=== PATIENT | male | born 1945 | race Caucasian/White ===

== ENCOUNTER 2018-08-16 05:25 | Emergency (ER) | payer MEDICARE, BC ==
--- NOTE | 2018-08-16 05:52 | EDM.PDOC ---
ED HPI GENERAL MEDICAL PROBLEM - General Chief Complaint: Chest Pain Stated Complaint: chest pain Time Seen by Provider: 08/16/18 05:28 Source of Information: Reports: Patient, RN, RN Notes Reviewed History Limitations: Reports: No Limitations - History of Present Illness INITIAL COMMENTS - FREE TEXT/NARRATIVE: Patient present to the ED at [facility] for the evaluation of chest/ epigastric pain. Patient states the pain started about two days ago. The pain intensity has remained the same. No cardiac history. He denies any SOB. No diaphoresis. Denies any dizziness. Patient states the pain radiates into the left shoulder. No jaw pain. Patient does not think his pain is acid reflex. He has a mild global headache that has been present "for a while." Over the past few weeks, he has noticed some intermittent blurry vision. Patient states overall, he has been very healthy. Does not see a provider on a regular basis. Onset Date: 08/14/18 Location: Reports: Chest Quality: Reports: Pressure Severity: Mild Improves with: Reports: None Worsens with: Reports: None Context: Denies: Activity, Sick Contact, Trauma Associated Symptoms: Reports: No Other Symptoms Treatments FINANCE PROFESSIONAL: Reports: Other (see below) (None) mid sternal chest Pain Score (Numeric/FACES): 3 - Related Data Allergies Allergy/AdvReac Type Severity Reaction Status Date / Time No Known Allergies Allergy Verified 08/16/18 05:43 Home Meds: Home Meds Lisinopril/Hydrochlorothiazide [Lisinopril-Hctz 10-12.5 mg Tab] 1 tab PO DAILY # 30 tablet 08/16/18 [Rx] ED ROS GENERAL - Review of Systems Review Of Systems: See Below Constitutional: Denies: Fever, Chills HEENT: Reports: Vision Change Respiratory: Denies: Shortness of Breath, Cough Cardiovascular: Reports: Chest Pain, Blood Pressure Problem. Denies: Lightheadedness, Palpitations GI/Abdominal: Reports: Abdominal Pain (epigastric). Denies: Nausea, Vomiting Skin: Reports: No Symptoms Neurological: Reports: Headache. Denies: Confusion, Dizziness, Numbness, Paresthesia, Tingling ED EXAM, GENERAL - Physical Exam Exam: See Below Exam Limited By: No Limitations General Appearance: Alert, No Apparent Distress Eye Exam: Bilateral Eye: Normal Inspection, PERRL Respiratory/Chest: No Respiratory Distress, Lungs Clear, Normal Breath Sounds Cardiovascular: Normal Peripheral Pulses, Regular Rate, Rhythm Peripheral Pulses: 2+: Radial (L), Radial (R) GI/Abdominal: Soft, Non-Tender, Abnormal Bowel Sounds (Hypoactive) Neurological: Alert, Oriented Skin Exam: Warm, Dry, Intact, Normal Color EKG INTERPRETATION EKG Date: 08/16/18 Time: 05:26 Rhythm: NSR Rate (Beats/Min): 75 [place]: Normal P-Wave: Present QRS: Normal ST-T: Normal QT: Normal GA/PQ Interval: 0.15 Comparison: NA - No Prior EKG EKG Interpretation Comments: 1. Sinus Rhythm 2. Pattern consistent with pulmonary disease 3. Left anterior fascicular block Course - Vital Signs Last Recorded V/S: Last Vital Signs Temp 36.5 C 08/16/18 05:27 Pulse 73 08/16/18 05:27 Resp 12 08/16/18 05:27 BP 170/96 H 08/16/18 06:21 Pulse Ox 95 08/16/18 05:27 - Orders/Labs/Meds Orders: Active Orders 24 hr Category Date Time Status EKG 12 Lead [EKG Documentation Completion] [RC] STAT Care 08/16/18 05:48 Active Chest 2V [CR] Stat Exams 08/16/18 05:50 Taken Sodium Chloride 0.9% [Saline Flush] Med 08/16/18 06:11 Active 10 ml FLUSH ASDIRECTED PRN Peripheral IV Insertion Adult [OM.PC] Routine Oth 08/16/18 06:11 Ordered Medication Orders Sodium Chloride (Saline Flush) 10 ml FLUSH ASDIRECTED PRN PRN Reason: Keep Vein Open Labs: Laboratory Tests 08/16/18 08/16/18 08/16/18 Range/Units 05:57 05:57 06:02 WBC 5.0 (4.0-10.0) x10^3/uL RBC 5.04 (4.5-6.0) x10^6/uL Hgb 15.7 (14.0-18.0) g/dL Hct 46.8 (40.0-52.0) % MCV 92.9 (78.0-93.0) fL MCH 31.2 (26.0-32.0) pg MCHC 33.5 (32.0-36.0) g/dL RDW Coeff of Mickey 12.7 (10.0-15.0) % Plt Count 184 (130-400) x10^3/uL Neut % (Auto) 64.6 (50.0-80.0) % Lymph % (Auto) 24.2 L (25.0-50.0) % [place] % (Auto) 6.8 (2.0-11.0) % Eos % (Auto) 4.2 H (0.0-4.0) % Baso % (Auto) 0.2 (0.2-1.2) % Sodium 143 (136-145) mmol/L Potassium 3.9 (3.5-5.1) mmol/L Chloride 105 (98-107) mmol/L Carbon Dioxide 28 (21-32) mmol/L Anion Gap 13.9 (10-20) mmol/L BUN 14 (7-18) mg/dL Creatinine 1.2 (0.70-1.30) mg/dL Est Cr Clr Drug Dosing 52.79 mL/min Estimated GFR (MDRD) 60 Glucose 107 H (74-106) mg/dL Calcium 8.9 (8.5-10.1) mg/dL Corrected Calcium 9.14 (8.5-10.1) mg/dL Total Bilirubin 0.9 (0.2-1.0) mg/dL AST 11 L (15-37) U/L ALT 25 (16-63) U/L Alkaline Phosphatase 97 (46-116) U/L Creatine Kinase 68 (39-308) U/L POC Troponin I 0.00 (0.00-0.08) ng/mL Total Protein 7.2 (6.4-8.2) g/dL Albumin 3.7 (3.4-5.0) g/dL Globulin 3.5 Albumin/Globulin Ratio 1.06 Amylase 53 (25-115) U/L Lipase 164 (73-393) U/L Meds: Medications Generic Name Dose Route Start Last Admin Trade Name Freq PRN Reason Stop Dose Admin Sodium Chloride 10 ml 08/16/18 06:11 Saline Flush FLUSH ASDIRECTED PRN Keep Vein Open Discontinued Medications Generic Name Dose Route Start Last Admin Trade Name Freq PRN Reason Stop Dose Admin Al Hydroxide/Mg Hydroxide 30 ml 08/16/18 05:49 08/16/18 06:01 Gi Cocktail PO 08/16/18 05:50 30 ml ONETIME ONE Administration Aspirin 324 mg 08/16/18 05:55 08/16/18 05:55 Aspirin PO 08/16/18 05:56 324 mg ONETIME ONE Administration Enalaprilat 1.25 mg 08/16/18 06:11 08/16/18 06:21 Vasotec Iv IVPUSH 08/16/18 06:12 1.25 mg ONETIME ONE Administration Famotidine 20 mg 08/16/18 06:11 08/16/18 06:34 Pepcid IVPUSH 08/16/18 06:12 20 mg ONETIME ONE Administration Ketorolac Tromethamine 30 mg 08/16/18 06:15 08/16/18 06:51 Toradol IVPUSH 08/16/18 06:16 30 mg ONETIME ONE Administration Pantoprazole Sodium 40 mg 08/16/18 06:11 08/16/18 06:31 Protonix Iv IVPUSH 08/16/18 06:12 40 mg ONETIME ONE Administration - Radiology Interpretation Free Text/Narrative:: CXR: Normal examination of the chest See scanned report in EMR for details - Re-Assessments/Exams Free Text/Narrative Re-Assessment/Exam: 08/16/18 06:37 Patient states his headache has resolved after the Vasotec. He states he is feeling better. Chest discomfort is "feeling better." Resting comfortably. Departure - Departure Time of Disposition: 07:07 Disposition: Home, Self-Care 01 Reason for Transfer *Q: Other Condition: Good Clinical Impression: Epigastric pain Hypertension Qualifiers: Hypertension type: essential hypertension Qualified Code(s): I10 - Essential ( primary) hypertension Prescriptions: Lisinopril/Hydrochlorothiazide [Lisinopril-Hctz 10-12.5 mg Tab] 1 tab PO DAILY # 30 tablet Instructions: Hypertension Referrals: Rylan Pete NP [Emergency Provider] - Forms: ED Department Discharge Additional Instructions: 1. Stay well hydrated and rest 2. Take blood pressure medication daily, even if you are feeling better 3. Avoid salt in foods 4. Followup with me in clinic in one week for a recheck, sooner if problems - Problem List Review Problem List Initiated/Reviewed/Updated: Yes - My Orders Last 24 Hours: My Active Orders 08/16/18 05:48 EKG 12 Lead [EKG Documentation Completion] [RC] STAT 08/16/18 05:50 Chest 2V [CR] Stat 08/16/18 06:11 Sodium Chloride 0.9% [Saline Flush] 10 ml FLUSH ASDIRECTED PRN Peripheral IV Insertion Adult [OM.PC] Routine - Assessment/Plan Last 24 Hours: My Active Orders 08/16/18 05:48 EKG 12 Lead [EKG Documentation Completion] [RC] STAT 08/16/18 05:50 Chest 2V [CR] Stat 08/16/18 06:11 Sodium Chloride 0.9% [Saline Flush] 10 ml FLUSH ASDIRECTED PRN Peripheral IV Insertion Adult [OM.PC] Routine Assessment:: Epigastric Pain [facility] Hypertension, uncontrolled Plan: Labs and xray discussed with patient. No acute emergency found. Will restart patients blood pressure medication. Patient will follow up with me in clinic in one week.
[2018-08-16] MEDS: Aspirin 81 MG Tab.Chew PO ONE (05:55)
[2018-08-16] MEDS: GI Cocktail Oral Solution 30 ML PO ONE (06:01)
[2018-08-16] MEDS ORDERED: Sodium Chloride 0.9% 10 ML Syringe FLUSH PRN (06:11)
[2018-08-16] MEDS: Enalaprilat 1.25 MG/ML SDV IVPUSH ONE (06:21)
[2018-08-16 06:25] LABS: ANION GAP 13.9 mmol/L (10-20)
[2018-08-16] MEDS: Pantoprazole 40 MG Vial IVPUSH ONE (06:31)
[2018-08-16] MEDS: Famotidine 20 MG/2 ML SDV IVPUSH ONE (06:34)
[2018-08-16] MEDS: Ketorolac 30 MG/ML SDV IVPUSH ONE (06:51)
--- NOTE | 2018-08-16 08:29 | CR ---
[id number] RAD/RAD Chest PA And Lateral EXAM: RAD Chest PA And Lateral INDICATION: CHEST PAIN. COMPARISON: None. DISCUSSION: Cardiomediastinal silhouette is normal in size and contour. No infiltrate, effusion, pneumothorax, or edema. IMPRESSION: No acute cardiopulmonary abnormality. Leroy Mayo DO 08/16/18 0827 Thank you for allowing us to participate in the care of your patient.
== END 2018-08-16 07:31 | disposition home or self-care (01) ==
LOC: VM.ED 05:25
DX: R10.13 Epigastric pain (principal); I10 Essential (primary) hypertension; Z79.899 Other long term (current) drug therapy
CPT/HCPCS: 36415; 71046; 80053; 82150; 82550; 83690; 84484; 85025; 93005; 96374; 96375; 99285; A9270; C9113; J1885; J3490; 93010; 99284-GF

== ENCOUNTER 2018-09-03 01:43 | Emergency (ER) | payer MEDICARE, BC ==
--- NOTE | 2018-09-03 02:32 | EDM.PDOC ---
ED HPI GENERAL MEDICAL PROBLEM - General Chief Complaint: General Stated Complaint: arms burning Time Seen by Provider: 09/03/18 01:45 Source of Information: Reports: Patient, Family History Limitations: Reports: No Limitations - History of Present Illness INITIAL COMMENTS - FREE TEXT/NARRATIVE: Patient states over the last couple of days he has had increased shortness of breath and dyspnea on exertion and a mid epigastric pain described as a burning with pain radiating out into bilateral arms and down each arm he says the shortness of breath increases with laying down and has increased over the last 2 -3 days to the point he can no longer lay flat and tonight had to get up into the recliner asleep he usually sleeps with 1-2 pillows and on his side has digital exertion has been increasing over the last 1-2 weeks states he usually would take the dog on a couple mall walker now he can barely make it a half mile before getting short of breath but after he rests it returns to normal he denies any chest pain during the last couple weeks nor does he have any chest pain tonight he states it is more of an epigastric turning indigestion type pain at the bottom of his sternum which is taking Tums for gotten decent relief he denies pain states it's more of a pressure and a burning he denies any lower extremity edema fever chills nausea or vomiting since he has been seeing his primary care provider Quentin for blood pressure medicine changes he denies seeing a sales service manager in the past states that his father did have congestive heart failure and past in his late 70s from it Improves with: Reports: Rest, Other (Setting up) Worsens with: Reports: Other (Lying flat) Associated Symptoms: Reports: Shortness of Breath. Denies: Chest Pain, Cough, Fever/Chills, Nausea/Vomiting - Related Data Allergies Allergy/AdvReac Type Severity Reaction Status Date / Time corn Allergy Headache Verified 09/03/18 01:44 cottonseed oil Allergy Headache Verified 09/03/18 01:44 Home Meds: Home Meds Lisinopril/Hydrochlorothiazide [Lisinopril-Hctz 10-12.5 mg Tab] 1 tab PO DAILY # 30 tablet 08/16/18 [Rx] Past Medical History Cardiovascular History: Reports: Hypertension - Past Surgical History GI Surgical History: Reports: Hernia, Inguinal, Hernia Repair/Other Other GI Surgeries/Procedures: Umbilical hernia. Musculoskeletal Surgical History: Reports: Other (See Below) Other Musculoskeletal Surgeries/Procedures:: Foot surgery. Social & Family History - Tobacco Use Smoking Status *Q: Former Smoker Used Tobacco, but Quit: Yes Month/Year Tobacco Last Used: 1973 ED ROS GENERAL - Review of Systems Review Of Systems: See Below Constitutional: Reports: Fatigue. Denies: Fever, Chills, Weakness, Decreased Appetite HEENT: Reports: No Symptoms Respiratory: Reports: Shortness of Breath. Denies: Wheezing, Pleuritic Chest Pain, Cough Cardiovascular: Reports: Blood Pressure Problem, Dyspnea on Exertion, Other ( Blood pressure tonight was 145/94 at home). Denies: Chest Pain, Edema, PND, Syncope Endocrine: Reports: No Symptoms GI/Abdominal: Reports: No Symptoms. Denies: Abdominal Pain, Difficulty Swallowing, Flatus, Hematemesis, Hematochezia, Nausea : Reports: No Symptoms Musculoskeletal: Reports: No Symptoms Skin: Reports: No Symptoms Neurological: Reports: No Symptoms Psychiatric: Reports: No Symptoms Hematologic/Lymphatic: Reports: No Symptoms ED EXAM, GENERAL - Physical Exam Exam: See Below Exam Limited By: No Limitations General Appearance: Alert, WD/WN, No Apparent Distress Nose: Normal Inspection Throat/Mouth: Normal Inspection, Normal Lips, Normal Teeth, Normal Gums, Normal Oropharynx Neck: Normal Inspection, Supple, Non-Tender, Full Range of Motion. No: Carotid Bruit Respiratory/Chest: No Respiratory Distress, Lungs Clear, Normal Breath Sounds, No Accessory Muscle Use, Chest Non-Tender Cardiovascular: Normal Peripheral Pulses, Regular Rate, Rhythm, No Edema, No Gallop, No JVD GI/Abdominal: Normal Bowel Sounds, Soft, Non-Tender, No Organomegaly, No Distention Extremities: Normal Inspection, Normal Range of Motion, Non-Tender, No Pedal Edema. No: Pedal Edema Neurological: Alert, Oriented, CN II-XII Intact, Normal Cognition, Normal Gait Psychiatric: Normal Affect Skin Exam: Warm, Dry, Intact, Normal Color Course - Vital Signs Last Recorded V/S: Last Vital Signs Temp 36.2 C 09/03/18 01:44 Pulse 80 09/03/18 01:44 Resp 18 09/03/18 01:44 BP 145/94 H 09/03/18 01:44 Pulse Ox 96 09/03/18 01:44 - Orders/Labs/Meds Orders: Active Orders 24 hr Category Date Time Status EKG Documentation Completion [RC] STAT Care 09/03/18 02:12 Ordered BASIC METABOLIC PANEL,BMP [CHEM] Stat Lab 09/03/18 02:12 Ordered CBC WITH AUTO DIFF [HEME] Stat Lab 09/03/18 02:12 Ordered PRO B-TYPE NATRIUR PEPT,BNPPRO [CHEM] Stat Lab 09/03/18 02:11 Ordered TROPONIN I [CHEM] Stat Lab 09/03/18 02:12 Ordered - Re-Assessments/Exams Free Text/Narrative Re-Assessment/Exam: 09/03/18 02:35 CBC BMP BNP troponin EKG EKG normal sinus rhythm negative acute findings for ST elevation or depression 09/03/18 03:20 CBC BMP troponin all normal BNP 38 09/03/18 04:06 Chest x-ray no acute findings reviewed the last notes when the patient was in the ER on July patient presented with the same signs and symptoms all the workup was negative then Departure - Departure Time of Disposition: 04:00 Disposition: Home, Self-Care 01 Condition: Good Clinical Impression: Dyspnea on exertion - Discharge Information - Problem List & Annotations (1) Dyspnea on exertion SNOMED Code(s): 37130095 Code(s): R06.09 - OTHER FORMS OF DYSPNEA Status: Acute Current Visit: Yes (2) Hypertension SNOMED Code(s): 35912970 Code(s): I10 - ESSENTIAL (PRIMARY) HYPERTENSION Status: Acute Current Visit: No Qualifiers: Hypertension type: essential hypertension Qualified Code(s): I10 - Essential (primary) hypertension (3) Epigastric pain SNOMED Code(s): 60785298 Code(s): R10.13 - EPIGASTRIC PAIN Status: Acute Current Visit: No - My Orders Last 24 Hours: My Active Orders 09/03/18 02:11 PRO B-TYPE NATRIUR PEPT,BNPPRO [CHEM] Stat 09/03/18 02:12 EKG Documentation Completion [RC] STAT BASIC METABOLIC PANEL,BMP [CHEM] Stat CBC WITH AUTO DIFF [HEME] Stat TROPONIN I [CHEM] Stat - Assessment/Plan Last 24 Hours: My Active Orders 09/03/18 02:11 PRO B-TYPE NATRIUR PEPT,BNPPRO [CHEM] Stat 09/03/18 02:12 EKG Documentation Completion [RC] STAT BASIC METABOLIC PANEL,BMP [CHEM] Stat CBC WITH AUTO DIFF [HEME] Stat TROPONIN I [CHEM] Stat Plan: Patient's blood pressure was checked and was within normal limits I discussed lab work chest x-ray with patient's they're okay with diagnosis and treatment and follow up outpatient with quentin in the next 24-48 hours patient was also instructed that he may return to the emergency room if anything got worse her signs and symptoms increased patient and gave verbal understanding continue all meds as directed
[2018-09-03 03:15] LABS: CHLORIDE,CL 102 mmol/L (98-107); SODIUM,NA 142 mmol/L (136-145)
[2018-09-03 03:17] LABS: ANION GAP 16.5 mmol/L (10-20)
--- NOTE | 2018-09-03 09:19 | CR ---
[id number] RAD/RAD Chest PA or AP 1V EXAM: RAD Chest PA or AP 1V INDICATION: SHORTNESS OF BREATH. COMPARISON: August 16, 2018. DISCUSSION: Cardiomediastinal silhouette is stable in size and contour. No infiltrate, effusion, pneumothorax, or edema. Low lung volumes associated vascular crowding. IMPRESSION: No acute cardiopulmonary abnormality. Leroy Mayo DO 09/03/18 0916 Thank you for allowing us to participate in the care of your patient.
== END 2018-09-03 04:15 | disposition home or self-care (01) ==
LOC: VM.ED 01:43
DX: R06.02 Shortness of breath (principal); I10 Essential (primary) hypertension; Z87.891 Personal history of nicotine dependence; Z91.018 Allergy to other foods; Z79.899 Other long term (current) drug therapy
CPT/HCPCS: 36415; 71045; 80048; 83880; 84484; 85025; 93005; 99284-GF; 99285-25

== ENCOUNTER 2018-10-08 10:39 | Day surgery (SDC) | payer MEDICARE, BC ==
[~2018-10-08 10:39] MED LIST: Lactated Ringers 1,000 ML IV SCH; Sodium Chloride 0.9% 10 ML Syringe FLUSH PRN
[2018-10-08] MEDS ORDERED: fentaNYL 100 MCG/2 ML SDV ONE (12:20)
[2018-10-08] MEDS ORDERED: Propofol 200 MG/20 ML SDV ONE (12:20)
[2018-10-08] MEDS ORDERED: Midazolam 1 MG/ML 2 ML SDV ONE (12:20)
--- NOTE | 2018-10-09 08:08 | OR ---
PREOPERATIVE DIAGNOSIS: Positive FIT test. POSTOPERATIVE DIAGNOSIS: Positive FIT test. PROCEDURE PERFORMED: Colonoscopy with polypectomy. The polyps were removed at 85 cm, 70 cm, 50 cm, and 10 cm. INDICATIONS: Mr. Ly is a 73-year-old male, who presents for his first colonoscopy. He had a positive FIT test. PROCEDURE IN DETAIL: This was done in the endoscopy suite. Sedation was given per Anesthesia. He was placed in the left lateral position. First, a rectal exam was done, it was normal. Scope was introduced into the rectum and slowly advanced to the rectum, sigmoid, descending, transverse, and ascending colon until the cecum was reached. Upon reaching the cecum, scope was slowly withdrawn looking at all mucosal surface on the way out. I found a polyp at 85, 70, 50, and 10 cm. Each was removed with a hot loop forceps. Remainder of the exam was normal. FINAL DIAGNOSIS: Polyps at 85, 70, 50, and 10 cm. Final pathology pending. BKD: 10/08/2018 13:00:48 MODL: 10/08/2018 19:36:48 /[id number]
== END 2018-10-08 14:10 | disposition home or self-care (01) ==
LOC: VM.SDS 10:39
PROVIDERS: ATTEND Surgery
DX: D12.4 Benign neoplasm of descending colon (principal); D12.5 Benign neoplasm of sigmoid colon; D12.8 Benign neoplasm of rectum; I10 Essential (primary) hypertension; E78.5 Hyperlipidemia, unspecified; N40.0 Benign prostatic hyperplasia without lower urinary tract symptoms; E66.09 Other obesity due to excess calories; R73.9 Hyperglycemia, unspecified; Z68.34 Body mass index [BMI] 34.0-34.9, adult; Z79.899 Other long term (current) drug therapy; Z88.8 Allergy status to other drugs, medicaments and biological substances; Z98.890 Other specified postprocedural states
CPT/HCPCS: 00812; 45384; J2250; J2704; J3010; J7120